=== PATIENT | female | born 1970 | race Caucasian/White ===

== ENCOUNTER → 2019-05-12 13:10 | Outpatient (BNVA) | payer SELFPAY | PROVIDERS: Family Provider Nurse Practitioner; PCP Nurse Practitioner; Visit Provider Nurse Practitioner | DX: M25.551 Pain in right hip (principal); M25.552 Pain in left hip | CPT/HCPCS: 73502 ==

== ENCOUNTER → 2019-10-21 16:18 | Outpatient (BNVA) | payer OTHER, SELFPAY | PROVIDERS: Family Provider Nurse Practitioner; Visit Provider Nurse Practitioner | DX: S61.451A Open bite of right hand, initial encounter (principal); W50.3XXA Accidental bite by another person, initial encounter; M79.641 Pain in right hand | CPT/HCPCS: 73130; 86705; 86706; 86709; 86803; 87340; 87806 ==

== ENCOUNTER → 2020-02-09 14:34 | Outpatient (BNVA) | payer OTHER, SELFPAY | PROVIDERS: Family Provider Nurse Practitioner; PCP Nurse Practitioner; Visit Provider Nurse Practitioner | DX: M54.30 Sciatica, unspecified side (principal); K58.1 Irritable bowel syndrome with constipation; F41.9 Anxiety disorder, unspecified; F98.8 Other specified behavioral and emotional disorders with onset usually occurring in childhood and adolescence | CPT/HCPCS: 72100 ==

== ENCOUNTER → 2020-08-07 08:24 | Outpatient (BNVA) | payer OTHER, SELFPAY | PROVIDERS: Family Provider Nurse Practitioner; PCP Nurse Practitioner; Visit Provider Nurse Practitioner | DX: F41.9 Anxiety disorder, unspecified (principal) | CPT/HCPCS: 80053; 84443; 85025 ==

== ENCOUNTER 2020-10-06 09:22 | Emergency (ER) | payer OTHER, SELFPAY ==
[2020-10-06 09:25] VITALS: BP 131/88; PULSE 98; RESP 16; TEMP 36.7; O2SAT 99; BMI 23.6
--- NOTE | 2020-10-06 09:29 | W.ED.ARRPALP ---
HPI - Arrhythmia/Palpitations General: Chief Complaint: Chest Pain Stated Complaint: HIGH HR Time Seen by Provider: 10/06/20 09:27 History of Present Illness: HPI narrative: 49-year-old female presents to the emergency room with complaints of rapid heart rate. This is been a long standing problem. She has a Holter monitor in place there is several reports in the chart all of them are sinus tachycardia with highest rate being 144. She currently is on diltiazem prior to that she was on Coreg. She sees a nurse practitioner she recently had a diltiazem increased to 30 mg 3 times a day. She denies regular use of energy drinks pseudoephedrine decongestants or high ingestion of caffeine. She mentioned that she has on occasion woken up with loss of bowel control. MD complaint: rapid heart beat and heart racing Onset (ago): month(s) Duration: intermittent Severity: mild Context: occurred during rest Associated symptoms: Reports anxiety and sense of impending doom; Deny cough, diaphoresis, muscle cramps, nausea, paresthesias, pre-syncope, short of breath, syncope or vomiting Review of Systems Const: Denies: diaphoresis ENMT: Denies: throat pain, ear or mastoid pain, nasal discharge or nasal congestion Card: Denies: syncope or pre-syncope Resp: Denies: dyspnea, productive cough or non-productive cough GI: Denies: nausea or vomiting : Denies: flank pain, difficulty voiding, dysuria, urinary frequency or urinary urgency Musc: Denies: muscle cramps Skin/Breast: Denies: rash or pruritus Psych: Reports: anxiety PFSH ED PFSH: Medical History Anxiety Attention deficit disorder (ADD) in adult COPD (chronic obstructive pulmonary disease) Irritable bowel syndrome with constipation Surgical History History of (~1999) Hx of hysterectomy Hx of tubal ligation Family History Other Cancer Hyperlipidemia Hypertension Denies family history of Diabetes Clotting disorder Social History Smoking and tobacco status: former smoker Second hand smoke exposure: No Smoking risk assessment/counseling performed?: No Alcohol intake: current Alcohol intake frequency: few times a month Desire information about alcohol rehabilitation?: No Counseling given: No Desire information about substance/drug rehabilitation?: No Counseling given: No Adopted: No Caregiver/support person: No Lives independently: Yes Household members: spouse Housing: House Marital status: Number of children: 3 Highest education level completed: High School Graduate service: No Current occupational status: employed 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 Pets and animals: Yes History of recent travel: No Current gender identity: Female Raissa/Congregation: Scientologist Special raissa needs: No Physical Exam Const: COMMON NORMALS: no acute distress GENERAL APPEARANCE: cooperative and comfortable ORIENTATION/CONSCIOUSNESS: Yes awake, Yes oriented to person, Yes oriented to place and Yes oriented to time HENMT: COMMON NORMALS: normocephalic, atraumatic, hearing grossly normal bilaterally and external ears normal HEAD & SCALP: normocephalic and atraumatic EXTERNAL EAR: Yes external ears normal Neck/C-Spine: COMMON NORMALS: no JVD Resp: COMMON NORMALS: normal respiratory effort, No retractions, No use of accessory muscles and clear to auscultation bilaterally AUSCULTATION: clear to auscultation bilaterally Cardio: COMMON NORMALS: no JVD, regular rate, regular rhythm and No murmurs present (Cardio) RATE: regular rate RHYTHM: regular rhythm GI: COMMON NORMALS: Soft to palpation and No hepatosplenomegaly present AUSCULTATION: Yes normoactive bowel sounds PALPATION: Yes Soft to palpation, No Tenderness to palpation present (GI), No Guarding due to palpation present (GI) and Yes No hepatosplenomegaly present Extremity: COMMON NORMALS: normal to inspection, capillary refill normal, no clubbing, cyanosis or edema, no calf tenderness and no pedal edema Neuro: SENSORIUM/ORIENTATION: Yes oriented to person, Yes oriented to place and Yes oriented to time Skin: COMMON NORMALS: no rashes or lesions noted GENERAL SKIN EXAM: no rashes or lesions noted Course Vital Signs: Vital signs: Vital Signs Temperature 98.1 F 10/06/20 09:25 Pulse Rate 20 L 10/06/20 13:27 Respiratory Rate 70 H 10/06/20 13:27 Blood Pressure 101/76 10/06/20 13:27 Pulse Oximetry 97 10/06/20 13:27 MDM - Arrhythmia/Palpitations MDM Narrative: Medical decision making narrative: No further tachycardias here reviewed the Holter monitor reports that are on file in the EMR she had 2 episodes of sinus tachycardia 144 and 125 no significant arrhythmias we will go ahead and discharge her home. Stacie change her Cardizem to CD 180 mg once daily she is taking 60 3 times daily of short acting and she is getting some breakthrough at the end of the dose. I think she may benefit from a long-acting version. Follow-up with Dr. King next week continue the event monitor Lab Data: Labs: Lab Results 10/06/20 10/06/20 10/06/20 Range/Units 09:40 09:40 09:40 WBC 6.8 (4.0-10.0) 10^3/ uL RBC 4.86 (4.1-5.3) 10^6/u L Hgb 14.7 (11.5-15.3) g/dL Hct 44.7 (37.0-47.0) % MCV 92.0 (81-99) fL MCH 30.2 (28.0-34.0) pg MCHC 32.9 (30.0-36.0) g/dL RDW 12.2 (12.1-15.1) % Plt Count 359 (130-400) 10^3/c mm MPV 9.6 (7.4-10.4) fL Neut % (Auto) 51.7 % Lymph % (Auto) 38.5 % [place] % (Auto) 7.6 % Eos % (Auto) 1.5 % Baso % (Auto) 0.6 % Neut # (Auto) 3.51 (1.8-7.7) 10^3/u L Lymph # (Auto) 2.6 (0.8-4.8) 10^3/u L [place] # (Auto) 0.5 (0.2-0.9) 10^3/u L Eos # (Auto) 0.1 (0.0-0.8) 10^3/u L Baso # (Auto) 0.0 (0.0-0.1) 10^3/u L Nucleated RBC % (a uto) 0 % Nucleated RBCs # 0.0 /100WBC Sodium 138 (136-145) mmol/L Potassium 4.0 (3.5-5.1) mmol/L Chloride 102 (98-107) mmol/L Carbon Dioxide 25 (22-29) mmol/L Anion Gap 15.0 (5-19) BUN 16 (6-20) mg/dL Creatinine 0.6 (0.5-0.9) mg/dL GFR Calculation 107.2 (90-130) mL/min Glucose 93 (65-115) mg/dL Calculated Osmolal ity 287 (285-295) mOsm/k g Calcium 9.3 (8.5-10.5) mg/dL Total Bilirubin 0.4 (0.15-1.2) mg/dL AST 20 (0-32) U/L ALT 17 (0-33) U/L Alkaline Phosphata se 60 (35-105) IU/L Creatine Kinase 41 (26-192) U/L Troponin T Baselin e 6 (0-10) ng/L Troponin T 120 Min rico (0-10) ng/L Delta Troponin T (0-10) ABS# Total Protein 6.7 (6.6-8.7) g/dL Albumin 4.5 (3.5-5.2) g/dL Globulin 2.2 (1.3-4.6) g/dL 10/06/ Range/Units 12:17 WBC (4.0-10.0) 10^3/ uL RBC (4.1-5.3) 10^6/u L Hgb (11.5-15.3) g/dL Hct (37.0-47.0) % MCV (81-99) fL MCH (28.0-34.0) pg MCHC (30.0-36.0) g/dL RDW (12.1-15.1) % Plt Count (130-400) 10^3/c mm MPV (7.4-10.4) fL Neut % (Auto) % Lymph % (Auto) % [place] % (Auto) % Eos % (Auto) % Baso % (Auto) % Neut # (Auto) (1.8-7.7) 10^3/u L Lymph # (Auto) (0.8-4.8) 10^3/u L [place] # (Auto) (0.2-0.9) 10^3/u L Eos # (Auto) (0.0-0.8) 10^3/u L Baso # (Auto) (0.0-0.1) 10^3/u L Nucleated RBC % (a uto) % Nucleated RBCs # /100WBC Sodium (136-145) mmol/L Potassium (3.5-5.1) mmol/L Chloride (98-107) mmol/L Carbon Dioxide (22-29) mmol/L Anion Gap (5-19) BUN (6-20) mg/dL Creatinine (0.5-0.9) mg/dL GFR Calculation (90-130) mL/min Glucose (65-115) mg/dL Calculated Osmolal ity (285-295) mOsm/k g Calcium (8.5-10.5) mg/dL Total Bilirubin (0.15-1.2) mg/dL AST (0-32) U/L ALT (0-33) U/L Alkaline Phosphata se (35-105) IU/L Creatine Kinase (26-192) U/L Troponin T Baselin e (0-10) ng/L Troponin T 120 Min rico 6.18 (0-10) ng/L Delta Troponin T 0.18 (0-10) ABS# Total Protein (6.6-8.7) g/dL Albumin (3.5-5.2) g/dL Globulin (1.3-4.6) g/dL Discharge Plan Discharge Patient Disposition: Home Clinical Impression: Tachycardia, Heart palpitations Condition: Stable Prescriptions: New Cardizem CD 180 mg capsule,extended release 24hr 180 mg PO DAILY Qty: 30 RF: 0 Discontinued diltiazem HCl [Cardizem] 30 mg tablet 60 mg PO TID RF: 0 No Action isosorbide mononitrate 30 mg tablet extended release 24 hr 30 mg PO DAILY Qty: 30 RF: 1 Celebrex 200 mg capsule 200 mg PO DAILY RF: 0 Effexor XR 75 mg capsule,extended release 24hr 150 mg PO DAILY RF: 0 Zonegran 100 mg capsule 100 mg PO BEDTIME RF: 0 Linzess 145 mcg capsule 145 mcg PO BEDTIME RF: 0 Discharge Orders: Discharge ED (Routine); Ordered 10/06/20 Ordered By: Balbir Schwartz Referrals: Pillo Winter, BUSINESS ANALYTICS MANAGER-C [Primary Care Provider] - Patient Instructions: Opioid Safety Coding Level of Care Code ED Clerical And Office Support Workers for Keshav Martinez
[2020-10-06 09:40] VITALS: PULSE 89
--- NOTE | 2020-10-06 09:40 | ECG_ITS ---
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 Measurements Intervals [place] Rate: 89 P: 65 UT: 144 QRS: 38 QRSD: 77 T: 59 QT: 319 QTc: 388 Interpretive Statements SINUS RHYTHM No previous ECG available for comparison Electronically Signed On 10-06-2020 22:27:02 CDT by Veena King M.D. [id number]
--- NOTE | 2020-10-06 09:40 | XR_ITS ---
WS: [id number] Exam: XR chest 1V portable [id number] Date/Time of Exam: 10/06/2020 9:43 AM Reason For Exam: chest pain Comparison 01/06/2019. The lungs are clear and fully expanded. Unremarkable cardiomediastinal structures and regional bony e lements. A battery pack superimposes the superior mediastinum. Monitoring leads overlie the chest. XR/XR chest 1V portable [id number] IMPRESSION: 1. No acute cardiopulmonary finding.
[2020-10-06 09:49] LABS: Basophils % 0.6 %; Eosinophils # 0.1 10^3/uL (0.0-0.8); Eosinophils % 1.5 %; Hematocrit 44.7 % (37.0-47.0); Hemoglobin 14.7 g/dL (11.5-15.3); Lymphocytes # 2.6 10^3/uL (0.8-4.8); Lymphocytes % 38.5 %; Mean Corpuscular HGB Conc 32.9 g/dL (30.0-36.0); Mean Corpuscular Hemoglobin 30.2 pg (28.0-34.0); Mean Platelet Volume 9.6 fL (7.4-10.4); Monocytes # 0.5 10^3/uL (0.2-0.9); Monocytes % 7.6 %; Neutrophils # 3.51 10^3/uL (1.8-7.7); Neutrophils % 51.7 %; Nucleated Red Blood Cells % 0 %; Platelet Count 359 10^3/cmm (130-400); Red Blood Count 4.86 10^6/uL (4.1-5.3); Red Cell Distribution Width 12.2 % (12.1-15.1); White Blood Count 6.8 10^3/uL (4.0-10.0)
[2020-10-06] MEDS: sodium chloride 0.9% 500 ML 999 ML IV (10:00)
[2020-10-06 10:07] LABS: Troponin(5th) Baseline 6 ng/L (0-10)
[2020-10-06 10:08] LABS: Alanine Aminotransferase 17 U/L (0-33); Albumin Level 4.5 g/dL (3.5-5.2); Alkaline Phosphatase 60 IU/L (35-105); Aspartate Amino Transferase 20 U/L (0-32); Blood Urea Nitrogen 16 mg/dL (6-20); Calcium 9.3 mg/dL (8.5-10.5); Carbon Dioxide 25 mmol/L (22-29); Chloride 102 mmol/L (98-107); Creatine Phosphokinase 41 U/L (26-192); Globulin 2.2 g/dL (1.3-4.6); Glomerular Filtration Rate 107.2 mL/min (90-130); Glucose 93 mg/dL (65-115); Osmolality Calculated 287 mOsm/kg (285-295); Sodium 138 mmol/L (136-145); Total Bilirubin 0.4 mg/dL (0.15-1.2); Total Protein 6.7 g/dL (6.6-8.7)
[2020-10-06 10:49] VITALS: BP 111/79; PULSE 65; RESP 20; O2SAT 96
[2020-10-06 11:13] VITALS: BP 111/77; PULSE 70; RESP 18; O2SAT 97
[2020-10-06 12:52] LABS: Troponin 5 2HR 6.18 ng/L (0-10); Troponin 5 2HR Delta 0.18 ABS# (0-10)
[2020-10-06 13:27] VITALS: BP 101/76; PULSE 20; RESP 70; O2SAT 97
== END 2020-10-06 13:29 | disposition home or self-care (01) ==
PROVIDERS: Emergency Provider Family Medicine; PCP Nurse Practitioner
DX: R00.0 Tachycardia, unspecified (principal); R00.2 Palpitations; J44.9 Chronic obstructive pulmonary disease, unspecified; Z87.891 Personal history of nicotine dependence
CPT/HCPCS: 71045; 80053; 82550; 84484; 85025; 93005; 99284; J7040

== ENCOUNTER 2020-10-10 13:56 | Outpatient (CLI) | payer OTHER, SELFPAY ==
--- NOTE | 2020-10-10 14:15 | USCV_ITS ---
Mark Albertina Age: 49 Gender: F : 1970 Exam Date: 10/10/2020 14:14 Ordering Phys: Pillo Winter Technologist: Gaby Martínez [place] [facility] [place]ication: PALPATATIONS BP: 112 / 73 HR: 70 Rhythm: Sinus Technical Quality: MEASUREMENTS (Male / Female) Normal Values 2D ECHO LV Diastolic Diameter PLAX 4.6 cm 4.2 - 5.9 / 3.9 - 5.3 cm LV Systolic Diameter PLAX 3.0 cm IVS Diastolic Thickness 0.9 cm 0.6 - 1.0 / 0.6 - 0.9 cm IVS Systolic Thickness 1.3 cm LVPW Diastolic Thickness 0.9 cm 0.6 - 1.0 / 0.6 - 0.9 cm LVPW Systolic Thickness 1.3 cm LVOT Diameter 2.0 cm LV Ejection Fraction 2D Teich 63.9 % LV Ejection Fraction MOD 2C 69.1 % LV Ejection Fraction 2C AL 68.3 % LA Diameter 2.8 cm LA Width 2.3 cm LA Height 3.3 cm RA Width 2.3 cm RA Height 3.0 cm Aorta at Sinotubular Diameter 2.4 cm M-MODE LV Diastolic Diameter MM 4.3 cm 4.2 - 5.9 / 3.9 - 5.3 cm LV Systolic Diameter MM 2.9 cm LV Ejection Fraction MM Teich 59.5 % IVS Diastolic Thickness MM 0.8 cm 0.6 - 1.0 / 0.6 - 0.9 cm IVS Systolic Thickness MM 1.5 cm LVPW Diastolic Thickness MM 1.1 cm 0.6 - 1.0 / 0.6 - 0.9 cm LVPW Systolic Thickness MM 1.6 cm Aortic Annulus Diameter 3.0 cm LA Ao Ratio MM 1.0 MV E Point Septal Separation 0.4 cm DOPPLER AV Peak Velocity 124.0 cm/s LVOT Peak Velocity 81.0 cm/s AV Area Cont Eq vti 2.2 cm squared AV Area Cont Eq pk 2.1 cm squared MV Area PHT 3.6 cm squared Mitral E to A Ratio 0.9 MV E' Velocity 43.5 cm/s Mitral E to MV E' Ratio 5.6 Mitral E to LV E' Lateral Ratio 5.2 Mitral E to LV E' Septal Ratio 6.0 TR Peak Velocity 191.8 cm/s TR Peak Gradient 14.7 mmHg TR Mean Velocity 136.4 cm/s TR Mean Gradient 8.3 mmHg TR Velocity Time Integral 46.0 cm TV Peak E Velocity 53.0 cm/s Right Atrial Pressure 3.0 mmHg Pulmonary Artery Systolic Pressu 17.7 mmHg PV Peak Velocity 84.0 cm/s RV Acceleration Time 0.1 s RV Ejection Time 0.3 s RV AcT/ET 0.4 FINDINGS Left Ventricle Normal left ventricular cavity size. Normal left ventricular systolic function. No regional wall motion abnormalities. Left ventricular ejection fraction is estimated at 63 %. Grade I/IV diastolic dysfunction (abnormal relaxation filling pattern), normal to mildly elevated filling pressures. Right Ventricle The right ventricle is normal in size and function. Right Atrium The right atrium is normal in size. Left Atrium The left atrium is normal in size. Mitral Valve Mildly thickened mitral valve. No mitral valve stenosis. Mild mitral valve regurgitation. Aortic Valve Structurally normal aortic valve without significant sclerosis or stenosis. There is no aortic regurgitation. Tricuspid Valve [id number] tricuspid valve regurgitation. Pulmonic Valve Structurally normal pulmonic valve without significant stenosis. There is no pulmonic regurgitation. Pericardium Normal pericardium without effusion. Aorta Normal ascending aorta dimension. CONCLUSIONS 1-Normal left ventricular cavity size. Normal left ventricular systolic function. No regional wall motion abnormalities. Left ventricular ejection fraction is estimated at 63 %. Grade I/IV diastolic dysfunction (abnormal relaxation filling pattern), normal to mildly elevated filling pressures. 8-Tchf-fr-moderate tricuspid valve regurgitation. 3-Mildly thickened mitral valve. No mitral valve stenosis. Mild mitral valve regurgitation. 4-There is no pericardial effusion. 5-Pulmonary artery systolic pressure is within normal limits. 6-There is no pericardial effusion. 7-Right atrial pressure is around 5 mm of mercury. 8-There are no prior echocardiogram studies to compare. Benjie Jacob MD (Electronically Signed) Final Date: 10 October 2020 18:53 S
== END 2020-10-10 13:57 | disposition home or self-care (01) ==
PROVIDERS: PCP Nurse Practitioner; Visit Provider Nurse Practitioner
DX: R00.2 Palpitations (principal); I08.1 Rheumatic disorders of both mitral and tricuspid valves
CPT/HCPCS: 93306

== ENCOUNTER → 2020-10-20 08:51 | Outpatient (BNVA) | payer OTHER, SELFPAY | PROVIDERS: PCP Nurse Practitioner; Visit Provider Nurse Practitioner | DX: Z51.81 Encounter for therapeutic drug level monitoring (principal); Z79.899 Other long term (current) drug therapy; I51.9 Heart disease, unspecified | CPT/HCPCS: 80162 ==

== ENCOUNTER 2020-10-30 07:50 | Outpatient (CLI) | payer OTHER, SELFPAY | END 2020-10-30 07:51 | disposition home or self-care (01) | LOC: LAB 01-09 12:48 | PROVIDERS: Visit Provider Nurse Practitioner | DX: I51.9 Heart disease, unspecified (principal) | CPT/HCPCS: 80162 ==

== ENCOUNTER → 2020-11-08 11:41 | Outpatient (BNVA) | payer OTHER, SELFPAY | PROVIDERS: PCP Nurse Practitioner; Visit Provider Nurse Practitioner | DX: R07.9 Chest pain, unspecified (principal); R00.0 Tachycardia, unspecified; R00.2 Palpitations | CPT/HCPCS: 71046 ==

== ENCOUNTER 2020-12-06 09:25 | Outpatient (CLI) | payer OTHER, SELFPAY ==
[2020-12-06 09:59] VITALS: BMI 23.8
--- NOTE | 2020-12-06 10:16 | NMCV_ITS ---
NM sammy perf SPECT r/s* [id number] Albertina Flores Age: 49 Gender: F : 1970 Exam Date: 12/06/2020 11:10 Ordering Phys: Benjie Jacob MD ([email or web address]) Technologist: SOTERO Howe Exam [facility]: [facility] Indications: CHEST PAIN, SHORTNESS OF BREATH STRESS TEST Please see separate stress test report in [facility] for full findings IMAGE PROTOCOL Rest/Stress 1 Exercise Day Radiopharmaceutical Dose (mCi) Administration Site Administered by Rest: Tc-99m 10.6 IV SOTERO Stallings Sestamichip Stress:Tc-99m 32.4 IV SOTERO Stallings Sestamibi Rest: 06-Dec-2020 60 Discovery 630 Stress: 06-Dec-2020 15 Discovery 630 Radiopharmaceutical was injected at 87 % maximum heart rate. Images obtained in supine and prone position. SPECT RESULTS Technical Quality: Excellent Raw Data Analysis: Normal Image Corrections: No attenuation or motion correction applied Summed Stress Score: 9 Summed Rest Score: 8 Summed Difference Score: 3 PERFUSION FINDINGS Medium-sized areas of fixed perfusion defect noted in the mid to distal anterior wall, mid to distal inferior and inferolateral wall suggestive of old myocardial infarction versus scarring. FUNCTIONAL RESULTS (calculated via Gated SPECT) Stress Image LV EF (%): 65 Stress EDV (mL):66 TID: 1.18 Stress ESV (mL):23 Rest Image LV EF (%): 50 FUNCTIONAL FINDINGS: Global hypokinesis IMPRESSIONS No significant ischemia noted possible old myocardial infarction versus scarring noted in basal to distal inferior and inferolateral wall. EKG segment will be documented separately Benjie Jacob MD (Electronically Signed) Final Date: 06 December 2020 21:12 S
--- NOTE | 2020-12-06 10:16 | ECG_ITS ---
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 Baseline heart rate was 51 beats per minute. Baseline blood pressure was 100/56 millimeters of mercury. Target heart rate was 173 beats per minute. Maximum heart rate achieved was 150, which was 86 % of the target heart rate. Maximum blood pressure was 155/77 millimeters of mercury. Total exercise time was 7 minutes. Maximum METs achieved was 10.2, maximum VO2 was 35.7. The reason for ending the test was maximum effort achieved. The patient complained of shortness of breath during the stress test, which then resolved at the end of the test. ELECTROCARDIOGRAM: BASELINE: Showed sinus rhythm, normal axis, no significant ST-T changes at the baseline noted. EXERCISE: At the peak exercise level, no significant ST-T changes suggestive of ischemia noted. RECOVERY: During the recovery period, heart rate dropped appropriately. No significant ST-T changes in the recovery suggestive of ischemia noted. CONCLUSION: 1. Exercise capacity good. 2. Heart rate response was appropriate. 3. Blood pressure response was appropriate. 4. Symptoms not suggestive of ischemia. 5. Electrocardiogram portion of the stress test was not suggestive of ischemia. Electronically Signed On 12-13-2020 21:26:17 CDT by ELIUD JACOB [id number]
[2020-12-06 12:34] VITALS: BP 119/67; PULSE 75
== END 2020-12-06 09:26 | disposition home or self-care (01) ==
LOC: CDL 09:30
PROVIDERS: PCP Nurse Practitioner; Visit Provider Internal Medicine Cardiovascular Disease
DX: R07.9 Chest pain, unspecified (principal); R06.02 Shortness of breath
CPT/HCPCS: 78452; 80162; 93017; A9500

== ENCOUNTER → 2021-01-09 07:59 | Outpatient (BNVA) | payer SELFPAY | PROVIDERS: PCP Dermatology; Visit Provider Dermatology | DX: Z01.89 Encounter for other specified special examinations (principal) ==

== ENCOUNTER → 2021-02-19 11:12 | Outpatient (BNVA) | payer OTHER, SELFPAY | PROVIDERS: PCP Nurse Practitioner; Visit Provider Nurse Practitioner | DX: E55.9 Vitamin D deficiency, unspecified (principal); R00.0 Tachycardia, unspecified; R53.83 Other fatigue; L65.9 Nonscarring hair loss, unspecified | CPT/HCPCS: 82306; 84443 ==

== ENCOUNTER → 2021-04-17 00:01 | Outpatient (BNVA) | payer OTHER, SELFPAY | PROVIDERS: PCP Nurse Practitioner; Visit Provider Nurse Practitioner | DX: Z20.822 Contact with and (suspected) exposure to COVID-19 (principal); R05.9 Cough, unspecified | CPT/HCPCS: 87635 ==

== ENCOUNTER → 2021-04-24 07:50 | Outpatient (BNVA) | payer OTHER, SELFPAY | PROVIDERS: PCP Nurse Practitioner; Visit Provider Nurse Practitioner | DX: R05.9 Cough, unspecified (principal) | CPT/HCPCS: 71046 ==

== ENCOUNTER → 2021-07-03 07:45 | Outpatient (BNVA) | payer SELFPAY | PROVIDERS: PCP Dermatology | DX: Z01.89 Encounter for other specified special examinations (principal) ==

== ENCOUNTER → 2021-12-03 12:12 | Outpatient (BNVA) | payer OTHER, SELFPAY | PROVIDERS: PCP Nurse Practitioner; Visit Provider Nurse Practitioner | DX: L98.9 Disorder of the skin and subcutaneous tissue, unspecified (principal) | CPT/HCPCS: 88305 ==

== ENCOUNTER → 2022-01-01 07:38 | Outpatient (BNVA) | payer SELFPAY | PROVIDERS: PCP Nurse Practitioner; Visit Provider Dermatology | DX: Z01.89 Encounter for other specified special examinations (principal); R00.0 Tachycardia, unspecified | CPT/HCPCS: 80162 ==

== ENCOUNTER → 2022-04-02 08:08 | Outpatient (BNVA) | payer SELFPAY | PROVIDERS: PCP Nurse Practitioner; Referring Provider Dermatology; Visit Provider Dermatology | DX: Z01.89 Encounter for other specified special examinations (principal) ==

== ENCOUNTER → 2022-04-09 07:52 | Outpatient (BNVA) | payer OTHER, SELFPAY | PROVIDERS: PCP Nurse Practitioner; Visit Provider Nurse Practitioner | DX: R00.0 Tachycardia, unspecified (principal) | CPT/HCPCS: 80162 ==

== ENCOUNTER → 2022-05-27 07:57 | Outpatient (BNVA) | payer OTHER, SELFPAY | PROVIDERS: PCP Nurse Practitioner; Visit Provider Family Medicine | DX: Z13.6 Encounter for screening for cardiovascular disorders (principal) | CPT/HCPCS: 80061; 82947; 83036 ==

== ENCOUNTER → 2022-09-12 11:40 | Outpatient (BNVA) | payer OTHER, SELFPAY | PROVIDERS: PCP Nurse Practitioner; Visit Provider Nurse Practitioner | DX: J44.9 Chronic obstructive pulmonary disease, unspecified (principal); N95.2 Postmenopausal atrophic vaginitis | CPT/HCPCS: 71046 ==

== ENCOUNTER 2022-09-25 15:13 | Outpatient (CLI) | payer OTHER, SELFPAY ==
--- NOTE | 2022-09-25 15:18 | MM_ITS ---
WS: [id number] BILATERAL 3D TOMOSYNTHESIS DIGITAL SCREENING MAMMOGRAPHY WITH CAD CLINICAL INFORMATION: SCREENING HISTORY: Screening mammogram. No current complaints. COMPARISON: Baseline TECHNIQUE: Bilateral CC and MLO views. FINDINGS: The breasts are composed of heterogeneous fibroglandular density tissue, which can limit the detectio n of small underlying mass lesions. 6 mm asymmetric density posterior depth LEFT breast just above th e posterior nipple line on the MLO view. Recommend further evaluation with spot diagnostic mammograph y and ultrasound if persistent. This is not seen on the cc view. RIGHT breast is unremarkable. MM/[place] [id number] IMPRESSION: BI-RADS: 0-Incomplete: Need additional imaging evaluation FOLLOW UP: Need Additional Imaging Recommend LEFT breast diagnostic mammography and ultrasound if persistent.
== END 2022-09-25 15:14 | disposition home or self-care (01) ==
LOC: RAD 15:14
PROVIDERS: PCP Nurse Practitioner; Visit Provider Nurse Practitioner
DX: Z12.31 Encounter for screening mammogram for malignant neoplasm of breast (principal)
CPT/HCPCS: 77063; 77067

== ENCOUNTER → 2022-10-01 10:10 | Outpatient (BNVA) | payer SELFPAY | PROVIDERS: PCP Nurse Practitioner; Referring Provider Nurse Practitioner; Visit Provider Dermatology | DX: Z01.89 Encounter for other specified special examinations (principal) ==

== ENCOUNTER 2022-10-23 07:26 | Outpatient (CLI) | payer OTHER, SELFPAY ==
--- NOTE | 2022-10-23 07:53 | MM_ITS ---
WS: [id number] LEFT 3D TOMOSYNTHESIS DIGITAL MAMMOGRAPHY WITH CAD CLINICAL INFORMATION: ABNORMAL MAMMO HISTORY: Additional views COMPARISON: September 25, 2022 TECHNIQUE: 3 views of the left breast were obtained. FINDINGS: The left breast is composed of heterogeneous fibroglandular density tissue, which can limit the detec tion of small underlying mass lesions. Persistent 6 mm asymmetric density posterior depth LEFT breast just above the posterior nipple line p artially compresses out on the spot compression views. This is adjacent to the chest wall. Ultrasound described below. ULTRASOUND BREAST LEFT TECHNIQUE: Ultrasound left breast focused area of concern. CLINICAL INFORMATION: ABNORMAL MAMMO FINDINGS: Ultrasound LEFT breast 10:00 to 2:00 position. Hypoechoic lesion at the 10:00 position 2 cm the nippl e appears to represent benign cluster of cysts with through transmission. This measures approximately 3.8 x 6.9 mm. In addition, at the 12:00 position 3cm from nipple is an elongated hypoechoic lesion is nonspecific b ut may represent a lobulated cyst or dilated duct measuring 8.0 x 3.0 x 2.0 mm. Recommend 6 month fol low-up. MM/[place] [id number] IMPRESSION: BI-RADS: 3-Probably Benign FOLLOW UP: 6 Month Follow-up Recommend 6 month follow-up LEFT breast diagnostic mammography and ultrasound t o confirm stability of the above described lesions
== END 2022-10-23 07:27 | disposition home or self-care (01) ==
PROVIDERS: PCP Nurse Practitioner; Visit Provider Nurse Practitioner
DX: R92.8 Other abnormal and inconclusive findings on diagnostic imaging of breast (principal)
CPT/HCPCS: 76642; 77061; G0279

== ENCOUNTER → 2023-03-19 08:55 | Outpatient (BNVA) | payer OTHER, SELFPAY | PROVIDERS: PCP Nurse Practitioner; Visit Provider Nurse Practitioner | DX: M25.50 Pain in unspecified joint (principal); R06.02 Shortness of breath | CPT/HCPCS: 71046; 72040; 72072; 72100; 73502 ==

== ENCOUNTER → 2023-04-01 10:27 | Outpatient (BNVA) | payer SELFPAY | PROVIDERS: PCP Nurse Practitioner; Visit Provider Dermatology | DX: Z01.89 Encounter for other specified special examinations (principal) ==

== ENCOUNTER 2023-05-22 08:35 | Outpatient (CLI) | payer OTHER, SELFPAY ==
--- NOTE | 2023-05-22 08:50 | US_ITS ---
WS: [id number] Left breast ultrasound, 05/22/2023 Clinical Data: 6MFU ABN MAMMO Comparison: Left breast ultrasound, 10/23/2022 Findings: The lesion in the upper inner quadrant of the left breast measures 0.55 x 1.38 x 1.57 cm. Although th is lesion may represent a cluster of cysts there is mixed echotexture within a portion of this lesion . Impression: 1. Suspicious lesion upper inner quadrant left breast 2 cm from the nipple at the 10 o'clock position . 2. Recommend biopsy. US/US breast LT limited* [id number] BIRADS: 4-Suspicious Finding-Biopsy Should Be Considered FOLLOW UP: See Report
--- NOTE | 2023-05-22 08:50 | MM_ITS ---
WS: [id number] Left breast diagnostic 3D tomosynthesis digital mammogram, 05/22/2023 Clinical Data: R92.8 - Other abnormal and inconclusive findings on diagn... Comparison: 10/23/2022, 09/25/2022 Findings: The spiculated density in the posterior aspect of the left breast remains unchanged from before. Ther e are spiculations extending from this posterior density which is in the upper inner quadrant of the left breast. No other abnormalities are seen. Impression: 1. No change in spiculated density in upper inner quadrant of left breast. 2. Recommend left breast ultrasound MM/[place] [id number] BIRADS: 4-Suspicious Finding-Biopsy Should Be Considered FOLLOW UP: See Report The CAD carver and checkerer specials was used.
== END 2023-05-22 08:36 | disposition home or self-care (01) ==
LOC: RAD 08:39
PROVIDERS: PCP Nurse Practitioner; Visit Provider Nurse Practitioner
DX: R92.8 Other abnormal and inconclusive findings on diagnostic imaging of breast (principal); R92.30 Dense breasts, unspecified
CPT/HCPCS: 76642; 77061; G0279

== ENCOUNTER → 2023-06-09 07:45 | Outpatient (BNVA) | payer OTHER, SELFPAY | PROVIDERS: PCP Nurse Practitioner; Visit Provider Nurse Practitioner | DX: Z13.6 Encounter for screening for cardiovascular disorders (principal) | CPT/HCPCS: 80061; 82947; 83036 ==

== ENCOUNTER 2023-06-11 13:25 | Outpatient (CLI) | payer OTHER, SELFPAY ==
--- NOTE | 2023-06-11 14:40 | MM_ITS ---
WS: [id number] DIAGNOSTIC LEFT DIGITAL TOMOSYNTHESIS MAMMOGRAPHY WITH CAD. HISTORY: ABNORMAL MAMMO, additional views spiculated mass LEFT breast. COMPARISON: 05/22/2023, 10/23/2022 and 09/25/2022 Technique: LEFT CC, LEFT MLO with spot compression views. Breast composition: There are scattered areas of fibroglandular density. Patient presented for possib le biopsy of a mass in the posterior LEFT breast. By ultrasound there is no abnormality identified. A t that time we elected to do additional spot compression views of the LEFT breast. The spiculated are a with more focal spot compression nearly completely resolved. There is minimal residual asymmetry id entified. This is really only seen on the lateral projections. IMPRESSION: MM/[place] [id number] BI-RADS: 3-Probably Benign FOLLOW UP: 6 Month Follow-up Patient to return in 6 months for LEFT diagnostic mammogram and possible ultras ound.
--- NOTE | 2023-06-11 14:45 | US_ITS ---
WS: [id number] ULTRASOUND LEFT BREAST HISTORY: Patient presents for possible biopsy of a LEFT breast mass. COMPARISON: 05/22/2023, 10/23/2022, 09/25/2022 TECHNIQUE: 2-D and Doppler. There is no identifiable mass or area of shadowing spiculation in the posterior RIGHT breast. There i s what appears to be may be a small lymph node. There is no shadowing or distortion. This does not co rrespond in size or shape to the mammographic abnormality. At this time we did additional imaging and mammography with better spot compression. Please see that report also performed on the same day. IMPRESSION: US/US breast LT limited* [id number] BI-RADS: 3-Probably Benign FOLLOW-UP: See Report After additional mammographic imaging 6-month follow-up is recommended of the L EFT breast. No persistent mass noted by mammography.
== END 2023-06-11 13:26 | disposition home or self-care (01) ==
LOC: RAD 13:25
PROVIDERS: PCP Nurse Practitioner; Visit Provider Nurse Practitioner
DX: R92.322 Mammographic fibroglandular density, left breast (principal)
CPT/HCPCS: 76642; 77061; G0279

== ENCOUNTER → 2023-10-31 09:24 | Outpatient (BNVA) | payer OTHER, SELFPAY | PROVIDERS: PCP Nurse Practitioner; Visit Provider Nurse Practitioner Family | DX: R07.81 Pleurodynia (principal) | CPT/HCPCS: 71046 ==

== ENCOUNTER 2023-12-30 10:36 | Outpatient (CLI) | payer OTHER, SELFPAY ==
--- NOTE | 2023-12-30 11:00 | MM_ITS ---
WS: [id number] ADDITIONAL VIEWS LEFT MAMMOGRAM with tomosynthesis. LEFT BREAST ULTRASOUND HISTORY: R92.8 - Other abnormal and inconclusive findings on diagn... COMPARISON: 09/25/2022, 10/23/2022, 05/22/2023 and 06/11/2023 LEFT MAMMOGRAM: Spot compression views and true ML with tomosynthesis and sympathetic mammography. Breast composition: The breasts are heterogeneously dense, which may obscure small masses. Subtle asymmetry in the retroglandular fat against the chest wall. [id number] with only slight inc reased density. No suspicious group of calcifications. LEFT BREAST ULTRASOUND 2-D and color Doppler imaging submitted. Ultrasound is directed along the posterior breast from 12-6 o'clock. There is no mass or shadowing. N o corresponding abnormality. MM/[place] [id number] IMPRESSION: BI-RADS: 2 - Benign FOLLOW UP: 1 Year Follow-up
--- NOTE | 2023-12-30 11:45 | US_ITS ---
WS: [id number] ADDITIONAL VIEWS LEFT MAMMOGRAM with tomosynthesis. LEFT BREAST ULTRASOUND HISTORY: R92.8 - Other abnormal and inconclusive findings on diagn... COMPARISON: 09/25/2022, 10/23/2022, 05/22/2023 and 06/11/2023 LEFT MAMMOGRAM: Spot compression views and true ML with tomosynthesis and sympathetic mammography. Breast composition: The breasts are heterogeneously dense, which may obscure small masses. Subtle asymmetry in the retroglandular fat against the chest wall. [id number] with only slight inc reased density. No suspicious group of calcifications. LEFT BREAST ULTRASOUND 2-D and color Doppler imaging submitted. Ultrasound is directed along the posterior breast from 12-6 o'clock. There is no mass or shadowing. N o corresponding abnormality. US/US breast LT limited* [id number] IMPRESSION: BI-RADS: 2 - Benign FOLLOW UP: 1 Year Follow-up
== END 2023-12-30 10:37 | disposition home or self-care (01) ==
PROVIDERS: PCP Nurse Practitioner; Visit Provider Nurse Practitioner
DX: R92.8 Other abnormal and inconclusive findings on diagnostic imaging of breast (principal); R92.333 Mammographic heterogeneous density, bilateral breasts
CPT/HCPCS: 76642; 77061; G0279

== ENCOUNTER → 2024-06-15 08:02 | Outpatient (BNVA) | payer OTHER, SELFPAY | PROVIDERS: PCP Nurse Practitioner; Visit Provider Nurse Practitioner | DX: Z13.6 Encounter for screening for cardiovascular disorders (principal) | CPT/HCPCS: 80061; 82947; 83036 ==

== ENCOUNTER 2024-07-14 14:21 | Outpatient (CLI) | payer OTHER, SELFPAY ==
--- NOTE | 2024-07-14 15:15 | MR_ITS ---
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 COMPARISON: None available. Technique: Multiplanar, multisequence noncontrast imaging of the cervical spine. C5 and C6 reversal by 2 to 3 mm. Mild disc space narrowing at C5-6 and C6-7. No acute fractures. Signal within the cervical cord is normal. Visualized posterior fossa is unremarkable. Craniocervical junction, C1 and C2 relationship, odontoid process and soft tissues are normal. C2-C3: Normal. C3-C4: Small central disc protrusion. Mild RIGHT foraminal stenosis due to disc osteophyte. C4-C5: Normal. C5-C6: Annular disc bulging with osteophytic ridging. Mild retropulsion of C5 effacing ventral CSF. Mild central with moderate bilateral foraminal stenosis. C6-C7: Annular disc bulging with osteophytic ridging and a central disc protrusion. LEFT proximal disc osteophyte displacing the exiting nerve root. Mild central with moderate bilateral foraminal stenosis, LEFT greater than RIGHT. C7-T1: Normal. Paraspinal soft tissue are normal. MR/MR cervical spin wo con* [id number] IMPRESSION: 1. No acute cervical spine fracture. 2. Moderate degenerative disc space narrowing and desiccation at C5-6 and C6-7 . 3. C5-6: C5 retropulsion with disc osteophyte disease resulting in mild centra l and moderate bilateral foraminal stenosis. 4. C6-7: Osteophytic ridging with a central disc protrusion. Proximal LEFT for aminal disc osteophyte displacing the nerve root. Mild central with moderate bi lateral foraminal stenosis, LEFT greater than RIGHT. 5. C3-4: Mild RIGHT foraminal stenosis due to disc osteophyte.
== END 2024-07-14 14:22 | disposition home or self-care (01) ==
LOC: RAD 14:23
PROVIDERS: PCP Nurse Practitioner; Visit Provider Nurse Practitioner
DX: M50.322 Other cervical disc degeneration at C5-C6 level (principal); M50.323 Other cervical disc degeneration at C6-C7 level; M48.02 Spinal stenosis, cervical region; M50.223 Other cervical disc displacement at C6-C7 level; M25.78 Osteophyte, vertebrae; R93.7 Abnormal findings on diagnostic imaging of other parts of musculoskeletal system; M50.21 Other cervical disc displacement, high cervical region
CPT/HCPCS: 72141

== ENCOUNTER 2024-12-02 18:09 | Outpatient (CLI) | payer OTHER, SELFPAY ==
--- NOTE | 2024-12-02 13:20 | MM_ITS ---
WS: [id number] BILATERAL SCREENING DIGITAL TOMOSYNTHESIS MAMMOGRAM WITH CAD HISTORY: Z12.31 - Encounter for screening mammogram for malignant ... COMPARISON: 12/30/2023, 06/11/2023, 05/22/2023, 09/25/2022 Bilateral CC and MLO views with tomosynthesis and synthetic mammography submitted. Computer aided detection analyzed. Breast composition: The breasts are heterogeneously dense, which may obscure small masses. No suspicious masses, microcalcifications or architectural distortion. Reidentified are the asymmetries in the posterior LEFT breast medial and superior to the nipple line. No interval change since the most recent exams. Diffuse increased density within each breast may be due to change in hormones. No suspicious grouping of calcifications. MM/MM scr tomosynthesis [id number] IMPRESSION: BI-RADS: 2 - Benign FOLLOW UP: 1 Year Follow-up
== END 2024-12-02 18:10 | disposition home or self-care (01) ==
LOC: MOBLMAM 18:09
PROVIDERS: PCP Nurse Practitioner; Visit Provider Nurse Practitioner
DX: Z12.31 Encounter for screening mammogram for malignant neoplasm of breast (principal); R92.333 Mammographic heterogeneous density, bilateral breasts; N64.89 Other specified disorders of breast
CPT/HCPCS: 77063; 77067

== ENCOUNTER → 2025-03-21 09:26 | Outpatient (BNVA) | payer SELFPAY | PROVIDERS: PCP Nurse Practitioner; Visit Provider Nurse Practitioner | DX: J44.9 Chronic obstructive pulmonary disease, unspecified (principal) | CPT/HCPCS: 71046 ==